=== PATIENT | female | born 1980 | race Caucasian/White ===

== ENCOUNTER 2022-02-28 15:29 | Outpatient (CLI) | payer OTHER, SELFPAY ==
[2022-02-28 19:07] LABS: Chlamydia DNA Amplified* NOT DETECTED (No Detected); GC DNA Amplified* NOT DETECTED (No Detected)
[2022-03-01 14:18] LABS: Strep B DNA Probe NEGATIVE (Negative)
[2022-03-02 08:21] LABS: Strep B Pen/Amox Allergy No
== END 2022-02-28 15:30 | disposition home or self-care (01) ==
PROVIDERS: Visit Provider Obstetrics & Gynecology
DX: O09.513 Supervision of elderly primigravida, third trimester (principal); Z3A.37 37 weeks gestation of pregnancy
CPT/HCPCS: 87081; 87491; 87591; 87653

== ENCOUNTER 2022-02-28 16:30 | Inpatient (IN) | payer OTHER, SELFPAY ==
[2022-02-28] VITALS (14 sets, daily range): BP systolic 129–147; BP diastolic 74–96; PULSE 62–83; RESP 16–18; TEMP 36.6–36.9; O2SAT 90–100; BMI 36.8
--- NOTE | 2022-02-28 16:03 | CRLHL7_ITS ---
For Patients: As a result of the Century Cures Act, medical imaging exams and procedure reports are released immediately into your electronic medical record. You may view this report before your referring provider. If you have questions, please contact your health care provider. INDICATION: Advanced maternal age. TECHNIQUE: Ultrasound OB pelvis transabdominal. Real-time cordova-scale imaging of the fetus was performed without stress testing. COMPARISON: None. FINDINGS: Sonographic imaging demonstrates a single living intrauterine gestation. Fetus demonstrates a regular cardiac rate of 133 beats per minute. Fetus has a cephalic orientation. The following biometric measurements were obtained: Biparietal diameter: 34 weeks 2 days. Head circumference: 37 weeks 2 days. Abdominal circumference: 35 weeks 5 days. Femur length: 35 weeks 1 day. The composite ultrasound gestational age is calculated at 35 weeks 4 days with an estimated sonographic due date of March 31, 2022. The weight is estimated at 2710 grams, the 18th percentile. Amniotic fluid volume appears normal with the deepest pocket of 3 cm. motion and tone were observed. breathing was not observed. IMPRESSION: Single viable intrauterine with a biophysical profile 6/8. Respiratory activity was not visualized. There is an 11 day discrepancy between ultrasound and clinical dating. Dictated by Mane Baker MD @ 02/28/2022 5:39:08 PM (Electronically Signed)
[2022-02-28 16:29] LABS: Hematocrit 37.9 % (33.0-51.0); Hemoglobin* 13.2 gm/dL (12.0-16.0); Mean Corpuscular HGB Conc 35 gm/dL (32-36); Mean Corpuscular Hemoglobin 33 pg (26-34); Mean Corpuscular Volume 93 fL (80-100); Platelet Count* 248 K/uL (140-440); Red Blood Count 4.06 m/uL (4.00-5.20); White Blood Count* 14.16 K/uL (4.50-11.00)
[2022-02-28 16:38] LABS: Hemoglobin A1C* 5.17 % (0-5.6)
[2022-02-28 16:39] LABS: Slide Review Reflex No
[2022-02-28 16:45] LABS: Alanine Aminotransferase* 33 U/L (4-35); Aspartate Amino Transferase* 38 U/L (12-35); Blood Urea Nitrogen* 10 mg/dL (5-24); Creatinine* 0.6 mg/dL (0.5-1.5); Estimated Glomerular Filt Rate 115 ml/min; Total Protein Urine 23 mg/dL
[2022-02-28 16:46] LABS: Creatinine Urine 74.7 mg/dL
[2022-02-28 17:58] LABS: SARS PCR* Negative SARS-CoV-2 (Negative)
[2022-02-28 18:48] LABS: Hepatitis B Surface Antigen* Negative (Negative)
[2022-02-28 19:00] LABS: HIV 1/2/P24 Combo Screen* Negative (Negative)
[2022-02-28] MEDS: miSOPROStoL 25 MCG/0.25 TABLET PO ×2 (20:11→23:19)
--- NOTE | 2022-02-28 20:42 | PM.OBHPLI ---
OB - H&P: HPI Labor/Induction History of Present Illness Time Seen by Provider: 20:42 Date Seen: 02/28/22 Chief Complaint: Induction of labor Chief complaint: Maternity : 1 Para: 0 Indications for induction: pre-eclampsia Narrative: Lauren Liu is a 41 year old female at 37w1d here for IOL due to newly diagnosed pre-eclampsia based on persistently mild ranging blood pressure and protein creatine ratio of 0.3. Patient denies contractions, LOF, vaginal bleeding or abnormal vaginal discharge. Denies fever, chills, chest pain, SOB, n/v, headache, vision changes, RUQ pain, or dizziness. Meds Home Medications and Allergies Home Medications Medication Instructions Recorded Confirmed Type calcium carbonate 500 mg calcium 500 mg PO QDAY 02/28/22 02/28/22 History (1,250 mg) chewable tablet (Calcium 500) ferrous sulfate 325 mg (65 mg 325 mg PO QDAY 02/28/22 02/28/22 History iron) tablet (Feosol) prenat.vits,maggi,[id number] 1 tab PO QDAY 02/28/22 02/28/22 History Allergies Allergy/AdvReac Type Severity Reaction Status Date / Time No Known Drug Allergies Allergy Verified 02/28/22 14:33 OB - H&P: Exam Physical Exam: Vital signs: Temp Pulse Resp BP Pulse Ox 98 F 83 16 145/87 H 100 02/28/22 20:08 02/28/22 20:08 02/28/22 20:08 02/28/22 20:08 02/28/22 17:54 Narrative: Physical exam: General: No acute distress Psych: Alert and oriented x3, full affect HEENT: Normocephalic, atraumatic Lungs: Clear to auscultation bilaterally Abdomen: Gravid. Non palpable contractions. Lower extremities: 3+ bilateral edema Pelvic exam: SVE 2/50/-4 OB - Results Labs Labs: Short CBC 02/28/22 Range/Units 16:21 WBC 14.16 H (4.50-11.00) K/uL Hgb 13.2 (12.0-16.0) gm/dL Hct 37.9 (33.0-51.0) % Plt Count 248 (140-440) K/uL BMP 02/28/22 16:21 BUN 10 Creatinine 0.6 Liver Function 02/28/22 Range/Units 16:21 AST 38 H (12-35) U/L ALT 33 (4-35) U/L OB - Problem Based A/P Additional Plan (1) Pre-eclampsia: Status: Acute Plan - Patient had cook catheter placed at 1840. She subsequently SROM at 1900 and cook catheter was removed. Her cervical exam was still the same. Will do cytotec protocol PO as patient has copious amount of leakage. - Patient attempting vaginal delivery without epidural but ok to ask her again from time to time. - Please see Dr. Mark's clinic note today for full H&P
[2022-03-01] VITALS (17 sets, daily range): BP systolic 114–169; BP diastolic 65–97; PULSE 61–91; RESP 16–18; TEMP 36.6–37.1; O2SAT 95–96
[2022-03-01] MEDS: LACTATED RINGERS 1000 ML 1,000 ML 999 ML IV (02:15)
[2022-03-01] MEDS: OXYTOCIN 30 unit/500 ML in NS 30 UNIT/500 ML BAG 300 UNIT IVPB (02:37)
[2022-03-01] MEDS: LIDOCAINE 1% MDV 20 ML INJECTION (02:46)
--- NOTE | 2022-03-01 03:03 | PM.OBPRCVD ---
Procedure Delivery date: 03/01/22 Procedure Done: Global Events: Pre-Eclampsia, Labor Induction and AMA Intrapartal Events: None Induction method: per misoprostol protocol Delivery monitor: external FHT Route of delivery: Laceration description: Perineal - 1st Degree Delivery repair: Vicryl Estimated blood loss (mL): 100 Anesthesia type: None Disposition: floor Complications: None Narrative: The patient is a 41 year-old G 1 P 0 admitted on February 28, 2022 at 37 and 1/7 weeks gestation for induction of labor due to newly diagnosed preeclampsia based on persistently mild range blood pressure and protein creatinine ratio 0.3. Cervical exam on admission was 2 cm/50 % effaced/-4 station with membranes intact in 1st presentation. Contractions were every 20 minutes. heart rate demonstrated baseline 150 bpm with moderate variability, + accelerations, - decelerations; a category I tracing. GBS unk but patient is term, no antibiotics for prophylaxis indicate. Will start Abx if patient is >18hr ruptures or develops clinical signs of infection. SROM occurred at 1900 on 02/28 with clear fluid. Labor Analgesia: None Pitocin: No Labor onset: 03/01 at 0130 Complete: 03/01 at 0211 Pushin/13 at 0218 Delivery time: 03/01 at 0233 heart tones during second stage were cat II with varibles At time a viable female infant delivered in vertex presentation over intact via spontaneous vaginal delivery. Infant was placed on maternal abdomen. Cord was clamped and cut after a 30-60 second delay. Nose and mouth were bulb suctioned. weight: pending. 8 at 1 minute and 9 at 5 minutes. Shoulder dystocia: No. Nuchal cord: No . Placenta delivered spontaneously and complete at 0237 with a 3 vessel cord. Complications: none. Mother and were stable after delivery. Laceration(s): 1st degree perineal, repaired with 2-0 vicryl running. Estimated blood loss: 100 mL. Sponge and needles counts are correct. Mother and infant were stable at the time of this note. Jade is planning on . Infant Gender: Female presentation: vertex Placental Delivery Description: Spontaneous
[2022-03-02 00:21] VITALS: BP 135/86; PULSE 80; RESP 18; TEMP 36.8; O2SAT 94
[2022-03-02 07:18] LABS: Hemoglobin* 11.7 gm/dL (12.0-16.0)
--- NOTE | 2022-03-02 08:24 | PM.OBDSVD1 ---
DS: Providers Provider Date Seen: 03/02/22 Date of admission: 02/28/22 16:30 Primary care physician: Not a Local Provider Admitting Clinician: Fernanda Yanez MD Attending Physician on discharge: Sugar Womack CNM Date of Discharge: 03/02/22 DS: Diagnosis Discharge Diagnosis (1) Pre-eclampsia: Status: Acute (2) Advanced maternal age (AMA), 40 years or greater: Status: Acute (3) Rh negative state in antepartum period: Status: Acute (4) care and examination immediately after delivery: Status: Acute (5) Status post vaginal delivery: Status: Acute Exam Const: Vital Signs, click to edit/add: Vital Signs - 24 hr 03/01/22 13:00 03/01/22 16:30 03/01/22 20:14 Temperature 97.9 F 98.0 F 98.3 F Pulse Rate [Blood Pressure Cuff] 81 81 91 Respiratory Rate 18 18 16 Blood Pressure [Ri ght Arm] 114/77 114/77 133/88 Pulse Oximetry 95 95 96 Oxygen Delivery Me thod Room Air Room Air Room Air 03/02/22 00:21 Temperature 98.2 F Pulse Rate [Blood Pressure Cuff] 80 Respiratory Rate 18 Blood Pressure [Ri ght Arm] 135/86 Pulse Oximetry 94 Oxygen Delivery Me thod Room Air Documenting provider has reviewed patient's vital signs: yes Common normals: no apparent distress, oriented x3, healthy appearing and alert HENMT: Common normals: normocephalic Head and scalp: normocephalic Eye: Common normals: PERRL Pupil: PERRL Neck & C-Spine: Common normals: full ROM and supple Chest: Common normals: inspection of chest normal Resp: Common normals: normal respiratory effort and clear to auscultation bilaterally Auscultation: clear to auscultation bilaterally Cardio: Common normals: regular rate and regular rhythm Rate: regular rate Rhythm: regular rhythm GI: Common normals: soft to palpation Palpation: soft : OB/external & speculum: Yes perineal/vaginal laceration Laceration: 1st (well approximated) Uterus: U/U Lochia: small Back & Pelvis: Common normals: thoracic and lumbar spine normal to inspection Extremity: Common normals: normal to inspection and full ROM Neuro: Common normals: oriented x3 Sensorium/orientation: alert Speech: speech normal Psych: Common normals: mental status grossly normal, thought process normal, speech normal and activity/motor behavior normal Speech: normal speech Thought process: normal thought process Skin: Common normals: no rashes or lesions noted General skin exam: no rashes or lesions noted OB - DS: Summary Hospital Course Hospital Course: The patient is a 41 year old G 1 P 1 at 37 2/7 weeks gestation that was admitted to the [facility] on 02/28/22 for induction of labor for pre-eclampsia without severe features. She had an uncomplicated vaginal delivery. She delivered a viable female infant. the patient has done well. The pain is well controlled with current medications.? She has no new complaints.? Urinary output is adequate and she is voiding without difficulty.? Has a good appetite, is tolerating a general diet, is passing flatus, and has had a bowel movement.? Has small amount of rubra lochia.? She is ambulating well. She is and reports it is going well. Peripartum Data delivery method: Vaginal Laceration description: Perineal - 1st Degree complications: none [place] Infant Gender: Female Infant Discharge Plan: Home Status at Discharge Functional status at discharge: independent ambulation Overall status at discharge: patient is progressing back to baseline Time Spent with Patient Time attestation: Total time spent providing and/or coordinating discharge services: Time spent: Less than 30 minutes Discharge Plan Discharge Disposition: Home, Self-Care Date of Admission: 02/28/22 16:30 Attending Provider on Discharge: Sugar Womack Primary Care Provider: Provider,Not a Local Condition: Stable Anticipated Discharge Date/Time: 03/02/22 12:00 Discharge Medications: New acetaminophen 500 mg Tablet 1,000 mg PO Q6H PRNQty: 0 0RF docusate sodium 100 mg Capsule 100 mg PO DAILY Qty: 90 0RF ibuprofen 600 mg Tablet 600 mg PO Q6H PRNQty: 60 0RF Continued prenat.vits,maggi,rfz-cknw-ikhey Tablet 1 tab PO QDAY calcium carbonate [Calcium 500] 500 mg calcium (1,250 mg) tablet,chewable 500 mg PO QDAY ferrous sulfate [Feosol] 325 mg (65 mg iron) tablet 325 mg PO QDAY Discharge Orders: Discharge Order (Routine); Ordered 12/14/22 Ordered By: Sugar Womack Patient Education: OB Vaginal/Breast Feeding Additional Instructions: Discharge instructions were reviewed with the patient including signs and symptoms of infection and home going medications Nothing vaginally for 6 weeks: no tampons or intercourse Off Work or School for 6 weeks Follow [facility] for a BP check at 2 weeks Call with BP greater than or equal to 160/110 2-week visit: discuss infant feeding concerns, review control options and screen for anxiety/depression. 6-week visit for an annual exam. consultation services are available to all mothers and babies for the first year after delivery.? To make an appointment, please call [phone]. Activity Level: Activity as Tolerated Discharge Diet: Regular Follow Up Appointments: [facility] [Provider Group] (2 weeks and 6 weeks ) Forms: [facility] Info Instructions
[2022-03-02 09:13] VITALS: BP 120/84; PULSE 84; RESP 16; TEMP 36.9; O2SAT 94
[2022-03-02] MEDS: DOCUSATE SODIUM 100 MG CAPSULE PO (09:20)
[2022-03-03 04:23] LABS: Rapid Plasma Reagin (RPR) Non Reactive (Non Reactive)
== END 2022-03-02 13:55 | disposition home or self-care (01) | DRG 807 ==
LOC: OB OUT 22:59 → OB 22:59
PROVIDERS: Obstetrics & Gynecology; Admitting Provider Obstetrics & Gynecology; Visit Provider Obstetrics & Gynecology
DX: O14.04 Mild to moderate pre-eclampsia, complicating childbirth (principal); Z37.0 Single live birth; O70.0 First degree perineal laceration during delivery; Z3A.37 37 weeks gestation of pregnancy
CPT/HCPCS: 36415; 59200; 76816; 76819; 82565; 82570; 83036; 84156; 84450; 84460; 84520; 85018; 85027; 86592; 86703; 86762; 86850; 86900; 86901; 87086; 87340; 87635; 88307; 99213; A9270; J7120

== ENCOUNTER 2022-03-09 13:34 | Outpatient (CLI) | payer OTHER, SELFPAY ==
--- NOTE | 2022-03-09 13:45 | W.PM.LAC.MC ---
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 Sena Jaundice: Yes (to abdomen) Reason for Consult Reason for Consult: difficulty latching, slow weight gain Past Experience Past Experience: No Current Frequency of Day Feedings: baby is eating about every 2.5 hours around the clock Both Breasts: Yes (mom offeres but states she's mostly botle fed) Suck: fairly strong Latch: wide Length of Time: 10 - 15 min/side Pumping Pumping: Yes (consistently pumps BID with a hand pump) Quantity Pumped: 2 - 5 oz total each time Supplementing EMB Supplement: Yes (baby takes 0 - 30 ml EBM/formula after every feeding) Formula Supplement: Yes Baby Elimination Number of Wet Diapers a Day: with almost every feeding Number of BM a Day: 6 - 8; yellow and seedy Breast/Nipple Condition Breast Information: WNL Engorgement: No Maternal Nipple Condition - Left: Common Nipple Maternal Nipple Condition - Right: Common Nipple Sore Nipples: No Onsite Pre-Feed weight: 2.538 kg Post-Feed weight: 2.55 kg Milk Transferred (mL): 12 Pre-Nursing Left Nipple: Within Normal Limits Pre-Nursing Right Nipple: Within Normal Limits Post-Nursing Left Nipple: Within Normal Limits Post-Nursing Right Nipple: Within Normal Limits Assessments/Interventions Assessments/Interventions: Met with mom and this now 8 day old ex- term AGA baby for consult.? Baby was seen over the weekend in the Center for concerns re: weight loss and jaundice.? At those visits mom was instructed to attempt to nurse baby every 2 - 3 hours, then supplement with 20 - 30 ml EBM/formula depending on how well the feeding went.? Mom reports she attempts to nurse at every feeding but most of the time baby doesn't latch/nurse well so she ends up supplementing with 30 ml.? She pumps consistently BID (more often when a family member is with her ) and gets 2 - 5 oz total.? Breasts WNL- symmetrical with rounded lower quadrants, intramammary distance is < 1.5 inches.? Nipples are a little large but everted and don't flatten or retract with breast compression; no damage noted. Baby has gained 70 grams/day since her last visit on 03/06 and is now 3% below BW (up from 11% on 03/06).? Per mom she has equal ROM when turning her head and moving her extremities, in clinic she seemed to favor turning her head to the left.? Palate and upper frenulum are WNL.? Lower frenulum was difficult to visualize. Baby had a fairly strong suck on a finger and the tongue extended past the gum line, also had good lateral movement.? Mom latched her to the left and baby appeared to have a wide latch, mom was somewhat uncomfortable but this resolved when baby's chin was pulled down.? She nursed for about 15 minutes and per mom for most of the feeding it felt like baby was nutritively suckling.? When she was finished, mom latched her to the right and although the latch looked good on this side as well, baby came off a few times b/c her head seemed to turn towards the left.? After the 25 - 30 minute session she transferred 12 ml. Plan: 1. Continue to practice nursing every 2 - 3 hours, offering both sides. When baby seems to have more pacifying suckles, ok to take her off and offer the other side.? OK to keep the nursing sessions to 30 minutes. 2. Supplement with 30 ml after every nursing session, mom practiced paced feeding.? Reviewed signs baby is getting too much and the supplementation can be reduced as well as signs the supplementation needs to be increased. 3. Encouraged mom to contact her insurance about an electric pump (she has handouts on [facility] and [employer]) and to pump after as many feedings as possible.? Try to have a goal of 4 times/day or more. 4. Will f/u on 03/16 for a two week WCC and in on 04/01 for a one month check.? Encouraged her to call sooner with questions or concerns.? Did not suggest body work for baby today as mom is pretty overwhelmed/tired with all of the recent visits.? 03/04 = 2296g (12% below BW) 03/05 = 2234g (15% below BW) 03/06 = 2328g (11% below BW) today = 2538g (3% below BW) Meds Home Medications and Allergies Home Medications Medication Instructions Recorded Confirmed Type calcium carbonate 500 mg calcium 500 mg PO QDAY 02/28/22 02/28/22 History (1,250 mg) chewable tablet (Calcium 500) ferrous sulfate 325 mg (65 mg 325 mg PO QDAY 02/28/22 02/28/22 History iron) tablet (Feosol) prenat.vits,maggi,wme-gzxu-violy 1 tab PO QDAY 02/28/22 02/28/22 History Allergies Allergy/AdvReac Type Severity Reaction Status Date / Time No Known Drug Allergies Allergy Verified 02/28/22 14:33
== END 2022-03-09 13:35 | disposition home or self-care (01) ==
PROVIDERS: Visit Provider Obstetrics & Gynecology
DX: Z39.1 Encounter for care and examination of lactating mother (principal)
CPT/HCPCS: 99211